=== PATIENT | female | born 1950 | race Hispanic/Latino ===

== ENCOUNTER 2020-09-17 21:21 | Emergency (ER) | payer MEDICARE ==
[2020-09-17] MEDS ORDERED: ONDANSETRON ODT 4 MG TAB ONE (21:44)
== END 2020-09-17 22:45 | disposition home or self-care (01) ==
LOC: EDBD 21:21 → EDH 21:21
DX: T52.0X1A Toxic effect of petroleum products, accidental (unintentional), initial encounter (principal); I10 Essential (primary) hypertension; E78.00 Pure hypercholesterolemia, unspecified; Z88.0 Allergy status to penicillin

== ENCOUNTER → 2020-09-30 | Outpatient (CLI) | payer MEDICARE | END | disposition home or self-care (01) | LOC: OIH 11:27 | PROVIDERS: ATTEND Family Medicine | DX: M47.814 Spondylosis without myelopathy or radiculopathy, thoracic region (principal); M47.812 Spondylosis without myelopathy or radiculopathy, cervical region; Z87.81 Personal history of (healed) traumatic fracture | CPT/HCPCS: 72040; 72070 ==